=== PATIENT | male | born 2000 ===

== ENCOUNTER 2020-06-05 20:52 | Emergency (ER) | payer SELFPAY ==
[2020-06-05 21:31] VITALS: BP 102/62; PULSE 67; RESP 18; TEMP 36.7; O2SAT 100
--- NOTE | 2020-06-05 22:15 | XRR_ITS ---
PROCEDURE INFORMATION: Exam: XR Left Ribs with PA Chest, 3 Views Exam date and time: 06/05/2020 10:49 PM Age: 19 years old Clinical indication: Injury or trauma; Injury history: Stepped on by bull left lower rib pain; Initial encounter; Rib area, left side; Blunt trauma TECHNIQUE: Imaging protocol: XR Left ribs 3 views with PA chest. COMPARISON: No relevant prior studies available. FINDINGS: Lungs: Unremarkable. No consolidation. Pleural space: Unremarkable. No pleural effusion. No pneumothorax. Heart/Mediastinum: Unremarkable. No cardiomegaly. Bones/joints: There are acute fractures of the 8th through 10th ribs on the left laterally. XR/XR ribs LT mn 3V w [id number] IMPRESSION: Acute fractures of the 8th through 10th ribs on the left laterally.
[2020-06-05 22:31] VITALS: RESP 18
[2020-06-05] MEDS: HYDROmorphone 1 mg/mL INJ 1 mL 1.5 MG IM (22:36)
[2020-06-05] MEDS: ondansetron 4 MG Tablet PO (22:36)
--- NOTE | 2020-06-05 22:51 | CTR_ITS ---
PROCEDURE INFORMATION: Exam: CT Chest With Contrast Exam date and time: 06/05/2020 11:05 PM Age: 19 years old Clinical indication: Injury or trauma; Injury history: Stepped on by a bull; Initial encounter; Luq; Blunt trauma (contusions or hematomas) TECHNIQUE: Imaging protocol: Computed tomography of the chest with intravenous contrast. Radiation optimization: All CT scans at this facility use at least one of these dose optimization techniques: automated exposure control; mA and/or kV adjustment per patient size (includes targeted exams where dose is matched to clinical indication); or iterative reconstruction. Contrast material: OMNI 300; Contrast volume: 75 ml; Contrast route: INTRAVENOUS (IV); COMPARISON: No relevant prior studies available. RADIATION DOSE METRICS: Total DLP (mGy-cm): 1081.94 FINDINGS: Lungs: There are some minimal patchy opacities present in the left costophrenic recess likely represents some atelectasis. There is some intermediate attenuation fluid present as well likely representing a small hemothorax. Pleural space: See Lungs finding. Heart: Unremarkable. No cardiomegaly. No pericardial effusion. Aorta: Unremarkable. No aortic aneurysm. Lymph nodes: Unremarkable. No enlarged lymph nodes. Bones/joints: There are acute fractures of the 8th through 11th ribs on the left laterally. Soft tissues: Some subcutaneous emphysema seen adjacent to the rib fractures. IMPRESSION: 1. Acute fractures of the 8th through 11th ribs on the left laterally 2. Small left hemothorax with superimposed atelectasis PROCEDURE INFORMATION: Exam: CT Abdomen And Pelvis With Contrast Exam date and time: 06/05/2020 11:05 PM Age: 19 years old Clinical indication: Injury or trauma; Injury history: Stepped on by a bull; Initial encounter; Luq; Blunt trauma (contusions or hematomas) TECHNIQUE: Imaging protocol: Computed tomography of the abdomen and pelvis with intravenous contrast. Radiation optimization: All CT scans at this facility use at least one of these dose optimization techniques: automated exposure control; mA and/or kV adjustment per patient size (includes targeted exams where dose is matched to clinical indication); or iterative reconstruction. Contrast material: OMNI 300; Contrast volume: 75 ml; Contrast route: INTRAVENOUS (IV); COMPARISON: No relevant prior studies available. RADIATION DOSE METRICS: Total DLP (mGy-cm): 1081.94 FINDINGS: Liver: Normal. No mass. Gallbladder and bile ducts: Normal. No calcified stones. No ductal dilation. Pancreas: Normal. No ductal dilation. Spleen: Normal. No splenomegaly. Adrenals: Normal. No mass. Kidneys and ureters: Normal. No hydronephrosis. Stomach and bowel: Unremarkable. No obstruction. No mucosal thickening. Appendix: No evidence of appendicitis. Intraperitoneal space: Unremarkable. No free air. No significant fluid collection. Vasculature: Unremarkable. No abdominal aortic aneurysm. Lymph nodes: Unremarkable. No enlarged lymph nodes. Bladder: Unremarkable as visualized. Reproductive: Unremarkable as visualized. Bones/joints: Unremarkable. No acute fracture. Soft tissues: Unremarkable. CT/CT chest abd pel w con* IMPRESSION: No acute findings. Radiation Dose CTDIVOL = (mGy): DLP = 1081.94~1081.94 (mGy-cm)
--- NOTE | 2020-06-05 23:13 | ED_ITS ---
HPI - Back Pain/Injury General: Chief Complaint: Back Pain/Injury Stated Complaint: stepped on by bull/rib pain Time Seen by Provider: 06/05/20 21:49 History of Present Illness: HPI Narrative: 19-year-old male who was riding a bull. He was thrown, and evidently the ball stepped on his left chest. He is complaining of intense pain to the left chest and left flank. No trouble breathing. It does hurt to take a breath. No hematuria. MD elicited complaint: other Onset (ago): hour(s) Timing: constant Severity: moderate Similar Symptoms Previously: No Quality: sharp Location: left flank Radiation: none Exacerbating factors: movement, deep breaths and coughing/sneezing Context: other Associated symptoms: Deny abdominal pain, fever(s), hematuria, nausea or vomiting Review of Systems Const: Denies: fever(s) Eyes: Denies: change in vision ENMT: Denies: swelling of lips/tongue, epistaxis or sinus pain Card: Reports: chest pain; Denies: palpitations, irregular heart rhythm or edema Resp: Denies: dyspnea, productive cough, non-productive cough or wheezing GI: Denies: abdominal pain, nausea or vomiting : Denies: difficulty urinating or hematuria Musc: Denies: neck pain or back pain Skin/Breast: Denies: rash or erythema Neuro: Denies: headache(s), dizziness or vertigo Psych: Denies: anxiety Physical Exam Const: GENERAL APPEARANCE: well developed and in distress ORIENTATION/CONSCIOUSNESS: Yes oriented to person, Yes oriented to place and Yes oriented to time HENMT: COMMON NORMALS: normocephalic, external ears normal and Normal external nose present HEAD & SCALP: normocephalic FACE & SINUS: normal facial exam NOSE: Normal external nose present and No nasal discharge present EXTERNAL EAR: Yes external ears normal MOUTH: tongue normal Eye: COMMON NORMALS: Equal, round and reactive pupils present, EOMs intact bilaterally and conjunctivae normal EYELID: eyelids normal CONJUNCTIVA: Yes conjunctivae normal PUPIL: Yes Equal, round and reactive pupils present Neck/C-Spine: COMMON NORMALS: full ROM GENERAL: No tracheal deviation CERVICAL SPINE: Yes normal cervical lordosis and No Cervical spine tenderness Chest: COMMONS NORMALS: normal inspection of the chest CHEST: No tenderness Resp: COMMON NORMALS: clear to auscultation bilaterally EFFORT & INSPECTION: No tachypneic, No respiratory distress, No retractions, No uses accessory muscles and No tracheal deviation AUSCULTATION: clear to auscultation bilaterally, no rhonchi, no wheezes and lung sounds not diminished Cardio: COMMON NORMALS: regular rate and regular rhythm RATE: regular rate RHYTHM: regular rhythm HEART SOUNDS: no murmurs PERIPHERAL PULSES: radial pulses present GI: INSPECTION: No abdominal distension AUSCULTATION: No Hyperactive bowel sounds present and No Hypoactive bowel sounds present PALPATION: No Guarding due to palpation present (GI) and No Rigid due to palpation PERCUSSION: no dullness to percussion and no tympanic to percussion : BLADDER/KIDNEY EXAM: Yes CVA tenderness on the left MALE GROIN/PERINEUM EXAM: No ecchymosis Back/Pelvis: GENERAL BACK: Yes CVA tenderness Neuro: SENSORIUM/ORIENTATION: Yes oriented to person, Yes oriented to place and Yes oriented to time Psych: COMMON NORMALS: mental status grossly normal Skin: COMMON NORMALS: no rashes or lesions noted GENERAL SKIN EXAM: no rashes or lesions noted Course Vital Signs: Vital signs: Vital Signs Temperature 98.1 F 06/05/20 21:31 Pulse Rate 60 06/06/20 01:02 Respiratory Rate 18 06/06/20 01:02 Blood Pressure 103/55 06/06/20 01:02 Pulse Oximetry 98 06/06/20 01:02 MDM - Back Pain/Injury MDM Narrative: Medical decision making narrative: 19-year-old male thrown probable, and then stepped on by the ball. His chest x-ray/rib x-ray showed at least 2 mildly displaced fractures on the left. Because of this, CT was ordered. It shows 4 contiguous rib fractures, 8 06/09/2011, on the left. There is no solid organ injury, however there is a small hemothorax present in the left chest. Because of this, observation admission was suggested with serial exams, versus transfer to a trauma center. The patient adamantly refused admission/transfer. He states that he wants to go home. Risks of going home including worsening bleeding in the chest, shortness of breath, pain, respiratory failure and were described to him. He is still adamant that he would like to go home. He is certainly awake and alert and capable of making his own decisions. I spoke with the patient's mother as well who is okay taking him home. She knows warning signs of worsening hemothorax such as worsening pain or shortness of breath, and knows to bring him to the nearest hospital on his way home to [facility] if any of this happens. Discharge Plan Discharge Patient Disposition: Home Clinical Impression: Multiple rib fractures Qualifiers: Encounter type: initial encounter Fracture type: closed Laterality: left Qualified Code(s): S22.42XA - Multiple fractures of ribs, left side, initial encounter for closed fracture Hemothorax, traumatic Qualifiers: Encounter type: initial encounter Qualified Code(s): S27.1XXA - Traumatic hemothorax, initial encounter Condition: Stable Prescriptions: New Percocet 5-325 mg tablet 1 tab PO Q6H PRN (Reason: pain) Qty: 14 RF: 0 Discharge Orders: Discharge Order (Routine); Ordered 06/06/20 Ordered By: Bobby Vann Discharge Diet: Usual diet Discharge Activity: Limit activity as instructed Patient Instructions: Rib Fracture (ED) Activity Restrictions/Additional Instructions: You were given the option to stay in the hospital for your injury, but you have chosen to go home. Return or go to the nearest hospital for increasing shortness of breath, worsening pain despite treatment, fever greater than 100, coughing up blood, other concerning symptoms. Discharge Date/Time: 06/06/20 01:03 Coding Level of Care Code ED Product Development Worker for Leo Barbosa Exam Comprehensive
[2020-06-05] MEDS: iohexol 300 mg/mL 100 mL Btl IV (23:15)
[2020-06-06 00:55] VITALS: RESP 18; O2SAT 98
[2020-06-06] MEDS: oxyCODONE-APAP 5-325 mg Tablet 2 TAB PO (00:55)
[2020-06-06 01:02] VITALS: BP 103/55; PULSE 60; RESP 18; O2SAT 98
== END 2020-06-06 01:03 | disposition home or self-care (01) ==
PROVIDERS: Emergency Provider Emergency Medicine
DX: S22.42XA Multiple fractures of ribs, left side, initial encounter for closed fracture (principal); S27.1XXA Traumatic hemothorax, initial encounter; W55.29XA Other contact with cow, initial encounter
CPT/HCPCS: 12345; 71101; 71260; 74177; 96372; 99282; 99283; J1170; Q0162; Q9967